=== PATIENT | female | born 1990 | race Two or more races ===

== ENCOUNTER 2024-03-28 21:33 | Emergency (ER) | payer OTHER ==
[~2024-03-28] VITALS: Ht 157.5 cm; Wt 84.8 kg
[2024-03-28 21:40] VITALS: TEMP 98.5
[2024-03-28] MEDS ORDERED: LORAZEPAM 1 MG TABLET ONE (22:01)
[2024-03-28] MEDS: LORAZEPAM 1 MG TABLET PO ONE (22:04)
[2024-03-28 22:50] VITALS: BP 125/87; O2SAT 98
== END 2024-03-28 22:50 | disposition home or self-care (01) ==
LOC: ER 21:39
DX: F43.0 Acute stress reaction (principal); E11.9 Type 2 diabetes mellitus without complications